=== PATIENT | female | born 1950 | race African-American/Black ===

== ENCOUNTER 2024-04-07 13:46 | Emergency (ER) | payer MEDICARE, OTHER ==
[~2024-04-07] VITALS: Ht 170.2 cm; Wt 118.0 kg
[2024-04-07 13:58] VITALS: BP 178/47; PULSE 60; RESP 18; TEMP 98.4; O2SAT 100
[2024-04-07] MEDS: KETOROLAC 30MG/ML VIAL IM ONE (16:37)
[2024-04-07] MEDS: KETOROLAC 30MG/ML VIAL IM SCH (16:45)
== END 2024-04-07 16:09 | disposition home or self-care (01) ==
LOC: ER 13:46
DX: M25.561 Pain in right knee (principal); M54.50 Low back pain, unspecified; I10 Essential (primary) hypertension; Z90.49 Acquired absence of other specified parts of digestive tract; W01.0XXA Fall on same level from slipping, tripping and stumbling without subsequent striking against object, initial encounter; Y93.89 Activity, other specified; Y92.89 Other specified places as the place of occurrence of the external cause; Y99.8 Other external cause status
CPT/HCPCS: 99283; 73562; 96372; L1830; J1885

== ENCOUNTER 2024-08-06 12:43 | Emergency (ER) | payer MEDICARE, OTHER ==
[~2024-08-06] VITALS: Ht 157.5 cm; Wt 109.0 kg
[2024-08-06 12:46] VITALS: TEMP 98.8; O2SAT 100
[2024-08-06] MEDS ORDERED: MORPHINE SULFATE 4 MG/ML INJ (FOR IV/IM USE) IV ONE (14:15)
[2024-08-06] MEDS ORDERED: IBUP-2029 MT (16:21)
[2024-08-06 16:41] VITALS: BP 156/65; PULSE 69; RESP 18; O2SAT 98
[2024-08-06] MEDS: ONDANSETRON 4MG ODT PO ONE (16:48)
[2024-08-06] MEDS: MORPHINE SULFATE 4 MG/ML INJ (FOR IV/IM USE) IV NR (16:48)
== END 2024-08-06 18:44 | disposition home or self-care (01) ==
LOC: ER 12:56
DX: S82.141A Displaced bicondylar fracture of right tibia, initial encounter for closed fracture (principal); M25.561 Pain in right knee; I10 Essential (primary) hypertension; Z98.84 Bariatric surgery status; Z90.49 Acquired absence of other specified parts of digestive tract; Z96.659 Presence of unspecified artificial knee joint; Z79.899 Other long term (current) drug therapy; W10.9XXA Fall (on) (from) unspecified stairs and steps, initial encounter; Y93.89 Activity, other specified; Y92.89 Other specified places as the place of occurrence of the external cause; Y99.8 Other external cause status
CPT/HCPCS: 99285; 72131; 96374; 29505; 72192; 73700; Q0162; J2270

== ENCOUNTER 2025-05-03 14:48 | Emergency (ER) | payer MEDICARE ==
[~2025-05-03] VITALS: Ht 162.6 cm; Wt 88.0 kg
[~2025-05-03 14:48] MED LIST: IBUP-1455 MT
[2025-05-03 14:52] VITALS: O2SAT 96
[2025-05-03 17:53] VITALS: BP 160/72; PULSE 75; RESP 15; TEMP 36.8; O2SAT 98
== END 2025-05-03 17:54 | disposition home or self-care (01) ==
LOC: ER 14:48
DX: M25.561 Pain in right knee (principal); M25.562 Pain in left knee; I10 Essential (primary) hypertension; Z90.49 Acquired absence of other specified parts of digestive tract; Z98.84 Bariatric surgery status; Z98.51 Tubal ligation status
CPT/HCPCS: 73564; 93970; 99284